=== PATIENT | female | born 1995 | race African-American/Black ===

== ENCOUNTER 2018-08-16 16:44 | Emergency (ER) | payer OTHER ==
[~2018-08-16] VITALS: Ht 160 cm; Wt 88.5 kg
--- NOTE | 2018-08-16 16:46 | NUR ---
JEFFY MITCHELL, CURRENTLY AWAITING BED
--- NOTE | 2018-08-16 16:51 | NUR ---
PT TAKEN TO BED 12 BY EMS CREW
[2018-08-16 16:54] VITALS: BP 150/98
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
[2018-08-16 19:02] VITALS: BP 124/87
--- NOTE | 2018-08-16 19:02 | NUR ---
Patient discharged with v/s stable. Written and verbal after care instructions given and explained. Patient alert, oriented and verbalized understanding of instructions. Ambulatory with steady gait. All questions addressed prior to discharge. ID band removed. Patient advised to follow up with PMD. Rx of Ibuprofen, Flexeril, [place] given. Patient educated on indication of medication including possible reaction and side effects. Opportunity to ask questions provided and answered.
== END 2018-08-16 19:02 | disposition home or self-care (01) ==
LOC: MED 16:44
DX: M54.2 Cervicalgia (principal); M25.512 Pain in left shoulder; V89.2XXA Person injured in unspecified motor-vehicle accident, traffic, initial encounter; Y93.89 Activity, other specified; Y92.481 Parking lot as the place of occurrence of the external cause; Y99.8 Other external cause status
CPT/HCPCS: 72040; 99283